=== PATIENT | female | born 1995 | race Caucasian/White ===

== ENCOUNTER 2019-08-16 11:32 | Outpatient (CLI) | payer OTHER | END 2019-08-16 11:37 | LOC: LAB 11:32 | PROVIDERS: ATTEND Obstetrics & Gynecology | DX: O20.0 Threatened abortion (principal) | CPT/HCPCS: 36415; 84702 ==

== ENCOUNTER 2019-08-26 12:38 | Outpatient (CLI) | payer OTHER ==
[2019-08-26 14:35] LABS: TSH 0.72 mIU/l (0.465-4.685)
== END 2019-08-26 12:43 ==
LOC: LAB 12:38
PROVIDERS: ATTEND Obstetrics & Gynecology
DX: O99.280 Endocrine, nutritional and metabolic diseases complicating pregnancy, unspecified trimester (principal); E07.9 Disorder of thyroid, unspecified; Z3A.00 Weeks of gestation of pregnancy not specified
CPT/HCPCS: 36415; 84439; 84443